=== PATIENT | male | born 1990 | race Hispanic/Latino ===

== ENCOUNTER 2022-07-04 20:33 | Emergency (ER) | payer OTHER ==
[2022-07-04 20:43] VITALS: BP 147/92
[2022-07-04 20:45] VITALS: BP 145/82
[2022-07-04 21:00] VITALS: BP 154/79
[2022-07-04 21:40] VITALS: BP 154/79
== END 2022-07-04 21:46 | disposition home or self-care (01) | DRG 605 ==
LOC: ED 20:33
PROC: 0HQGXZZ Repair Left Hand Skin, External Approach (ICD-10-PCS; principal; 2022-07-04)
DX: S61.217A Laceration without foreign body of left little finger without damage to nail, initial encounter (principal); W31.89XA Contact with other specified machinery, initial encounter; Y92.219 Unspecified school as the place of occurrence of the external cause; Y99.0 Civilian activity done for income or pay